=== PATIENT | female | born 1940 | race Caucasian/White ===

== ENCOUNTER 2017-02-17 17:41 | Observation (INO) | payer MEDICARE ==
[~2017-02-17] VITALS: Ht 165.1 cm; Wt 65.7 kg
--- NOTE | ~2017-02-17 | HEMODYNAMI ---
PATIENT:WILMER GIBSON MEDICAL RECORD: [id number] : 38 LOCATION[facility] [id number] ADMISSION DATE: 02/17/17 Generatedon:02/18/201714:54 Patient name: WILMER GIBSON Patient #: [id number] SSN: : 1940 Date of study: 02/18/2017 Page: Of Hemodynamic Procedure Report Patient Data Patient Demographics Procedure consent was obtained First Name: WILMER Gender: Female Last Name: ARTHUR : 1940 Middle Initial: L Age: 76 year(s) Patient #: [id number] Race: Unknown Additional ID: [id number] Contact details Address: [address] [place] [address] State: [place] City: [place] Zip code: [address] Admission Admission Data Admission Date: 02/17/2017 Admission Time: 22:33 Room #: D.2121 Lab Results Lab Result Date: 02/18/2017 Lab Result Time: 0:00 Biochemistry Name Units Result Min Max BUN mg/dl 16 --(---*)-- 7 18 Creatinine mg/dl 0.7 --(*---)-- 0.6 1.3 CBC Name Units Result Min Max Hematocrit % 48.2 --(--*-)-- 42 54 Hemoglobin g/dl 16.6 --(---*)-- 13.5 17.5 Procedure Procedure Types Cath Procedure Diagnostic Procedure [facility] w/Coronaries PCI Procedure Coronary Stent Initial Miscellaneous Procedures Moderate Sedation up to 30 minutes Procedure Description Procedure Date Procedure Date: 02/18/2017 Procedure Start Time: 14:18 Procedure End Time: 14:53 Procedure Staff Name Function Gil Wiggins MD Performing Physician Kelsy Weeks RT Scrub Eddie Sims RN Nurse Francisco Pérez RT Monitor Procedure Data Cath Procedure Fluoroscopy Diagnostic fluoroscopy Total fluoroscopy Time: 6 time: 6 min min Diagnostic fluoroscopy Total fluoroscopy dose: 661 dose: 661 mGy mGy Contrast Material Contrast Material Type Amount (ml) Isovue 300 108 Entry Location Entry Primary Successful Side Size Upsize Upsize Entry Closure Succes sful Closure Location (Fr) 1 (Fr) 2 (Fr) Remarks Device Remarks Femoral Right 5 Fr 6 Fr 6 Fr Exoseal artery Short Long Estimated blood loss: 10 ml Diagnostic catheters Device Type Used For End Catheter Placement Cordis 5Fr Pigtail Procedure Catheter (MP) Cordis 5Fr JL 4.0 Procedure Catheter (MP) Diagnostic Infinity 5Fr Procedure JL 6 catheter Cordis 5Fr 3DRC Catheter Procedure (MP) Procedure Complications No complications Procedure Medications Medication Administration Route Dosage 0.9% NaCl I.V. 100 ml/hr Oxygen NC 2 l/min Heparin Flush Bag added to field 2 bags (1000units/500ml NS) Lidocaine 2% added to field 20 Radial Cocktail added to field 1 syringe (Verapomil 2mg/Nitro 400mcg/Heparin 1500units) Versed I.V. 0.5 mg Fentanyl I.V. 25 mcg Fentanyl I.V. 25 mcg Versed I.V. 0.5 mg Fentanyl I.V. 25 mcg Heparin Bolus I.V. 4000 units Integrilin (Bolus I.V. 10.2 ml 2mg/ml) Integrilin (Bolus wasted 9.8 ml 2mg/ml) Fentanyl I.V. 25 mcg Plavix P.O. 600 mg Hemodynamics Rest HGB: 16.6 (g/dl) Heart Rate: 95 (bpm) Pressure Samples Time Site Value (mmHg) Purpose Heart Use Rate(bpm) 14:26 LV 125/13,15 Snapshot 93 14:26 AO 123/80(98) Pullback 93 14:26 LV 120/15,6 Pullback 93 Gradients Valve Time Site 1 Site 2 Mean SEP/DFP Peak To Heart Use (mmHg) (sec/min) Peak Rate (mmHg) (bpm) Aortic 14:26 LV AO 0 18 0 93 120/15,6 123/80(98) Calculations Valve P-P Mean Valve Index Valve Source Name Gradient Area Flow (cm2) Aortic 0 0 0 0 Snapshots Pre Cath Intra NCS Post Cath Vital Signs Time Heart Resp SPO2 etCO2 NIBP (mmHg) Rhythm Pain Sedation Rate (ipm) (%) (mmHg) Status Level (bpm) 13:48:25 87 19 94 27.6 129/79(109) NSR 0 (11) 10(A) , No pain 13:53:01 92 20 98 38.8 119/80(103) NSR 0 (11) 10(A) , No pain 13:57:35 91 16 92 0 109/86(101) NSR 0 (11) 10(A) , No pain 14:02:08 100 16 92 0 112/75(106) NSR 0 (11) 10(A) , No pain 14:06:42 88 16 94 41 118/81(95) NSR 0 (11) 10(A) , No pain 14:11:17 94 14 94 40.3 116/74(85) NSR 0 (11) 10(A) , No pain 14:15:53 94 21 94 0 102/77(92) NSR 0 (11) 9(A) , No pain 14:20:24 90 14 94 0 112/83(100) NSR 0 (11) 9(A) , No pain 14:24:58 91 17 94 17.1 125/80(94) NSR 0 (11) 9(A) , No pain 14:29:34 96 17 94 0 121/84(111) NSR 0 (11) 9(A) , No pain 14:34:11 92 17 96 14.1 123/82(100) NSR 0 (11) 9(A) , No pain 14:38:47 97 18 93 41.7 130/83(111) NSR 0 (11) 9(A) , No pain 14:43:26 97 16 92 0 118/82(98) NSR 0 (11) 9(A) , No pain 14:48:02 91 17 93 17.1 116/82(100) NSR 0 (11) 9(A) , No pain 14:52:35 94 17 40.3 122/94(109) NSR 0 (11) 9(A) , No pain Medications Time Medication Route Dose Verified Delivered Reason Note s Effectiveness by by 13:50:01 0.9% NaCl I.V. 100 Eddie Eddie Per physician ml/hr Levi Sims RN RN 13:50:13 Oxygen NC 2 l/min Eddie Eddie Per physician Levi Sims RN, RN 13:50:29 Heparin Flush added 2 bags Eddie Eddie used for Bag to Levi Sims procedure (1000units/500ml RN RN NS) 13:50:49 Lidocaine 2% added 20ml Eddie Eddie for local to vial Lorigan Lorigan anesthetic field RN RN 13:51:04 Radial Cocktail added 1 Eddie Eddie used for (Verapomil to syringe Lorigan Lorigan procedure 2mg/Nitro field RN RN 400mcg/Heparin 1500units) 14:04:32 Versed I.V. 0.5 mg Eddie Eddie for sedation Levi Sims RN RN 14:04:42 Fentanyl I.V. 25 mcg Eddie Eddie for sedation Levi Sims RN RN 14:09:18 Fentanyl I.V. 25 mcg Eddie Eddie for sedation Levi Sims RN RN 14:27:19 Versed I.V. 0.5 mg Eddie Eddie for sedation Levi Sims RN RN 14:36:39 Fentanyl I.V. 25 mcg Eddie Eddie for sedation Levi Sims RN RN 14:41:23 Heparin Bolus I.V. 4000 Eddie Eddie for units Lorigan Lorinocencio anticoagulation RN RN 14:41:43 Integrilin I.V. 10.2 ml Eddie Eddie for (Bolus 2mg/ml) Lorinocencio Sims antiplatelet RN RN therapy 14:42:02 Integrilin wasted 9.8 ml Eddie Eddie to sharp's (Bolus 2mg/ml) Levi Sims RN RN 14:46:37 Fentanyl I.V. 25 mcg Eddie Eddie for sedation Levi Sims RN RN 14:48:40 Plavix P.O. 600 mg Eddie Eddie for Levi Sims antiplatelet RN RN therapy Procedure Log Time Note 13:18:17 Diagnostic Cath status Elective 13:18:19 Francisco Pérez RT(R) sent for patient. Start room use. 13:18:27 Signed procedure consent form obtained from patient. 13:18:29 Time tracking: Regular hours 13:18:33 Plan of Care:Hemodynamics will remain stable., Cardiac rhythm will remain stable., Comfort level will be maintained., Respiratory function will remain adequate., Patient/ family verbilizes understanding of procedure., Procedure tolerated without complication., Recovers from procedure without complications.. :20:41 Lab Result : BUN 16 mg/dl :20:41 Lab Result : Creatinine 0.7 mg/dl 13:20:41 Lab Result : Hemoglobin 16.6 g/dl 13:20:41 Lab Result : Hematocrit 48.2 % 13:24:21 Lab results completed and on chart. 13:33:52 Patient received from Med II to CCL 1 Alert and oriented. Tansferred to table in Supine position. 13:33:54 Warm blankets applied, and crao hugger turned on for patient comfort. 13:33:54 Correct patient and procedure confirmed by team. 13:33:56 ECG and BP/O2 sat monitors applied to patient. 13:47:36 Vital chart was started 13:50:01 0.9% NaCl 100 ml/hr I.V. was administered by Eddie Sims RN; Per physician; 13:50:13 Oxygen 2 l/min NC was administered by Eddie Sims RN; Per physician; 13:50:29 Heparin Flush Bag (1000units/500ml NS) 2 bags added to field was administered by Eddie Sims RN; used for procedure; 13:50:44 Baseline sample Acquired. 13:50:49 Lidocaine 2% 20ml vial added to field was administered by Eddie Sims RN; for local anesthetic; 13:51:04 Radial Cocktail (Verapomil 2mg/Nitro 400mcg/Heparin 1500units) 1 syringe added to field was administered by Eddie Sims RN; used for procedure; 13:51:58 Rhythm: sinus rhythm 13:51:59 Full Disclosure recording started 13:52:17 H&P Date Dictated: 02/18/2017 Within 30 days and on chart.. 13:52:18 Pre-procedure instructions explained to patient. 13:52:18 Pre-op teaching completed and patient verbalized understanding. 13:52:39 Family unavailable. 13:52:40 Patient NPO since Midnight. 13:52:42 Is the patient allergic to Iodine/contrast media? No. 13:52:44 Is patient on blood thinner?No 13:52:49 Patient diabetic? No. 13:52:51 Patient not . Patient is over age 55. 13:52:55 Previous problem with sedation/anesthesia? No ? 13:52:56 Snore? No 13:52:57 Sleep apnea? No 13:52:58 Deviated septum? No 13:52:59 Opens mouth fully? Yes 13:53:00 Sticks out tongue? Yes 13:53:01 Airway obstruction? No ? 13:53:05 Dentures? Yes OUT 13:58:08 Pre procedure: right dorsailis pedis pulse 1+ Palpable, but thready & weak; easily obliterated 13:58:11 Modified Zhao's test Ulnar < 7 seconds 13:58:16 Patient pain scale 0/10 ?. 13:58:23 IV patent on arrival in left forearm with 0.9% NaCl at [facility]. 13:58:27 Right Radial & Right Groin area was prepped with chlora-prep and draped in sterile fashion 13:58:29 Alarms reviewed by R. N. 13:58:29 Sharps counted by scrub and verified by R.N. 13:58:30 Physician paged 13:59:07 Use device set Radial Dx 13:59:08 Tegaderm 4 x 4 opened to sterile field. 13:59:09 Acist Hand Control opened to sterile field. 13:59:10 Acist Manifold opened to sterile field. 13:59:11 Acist Syringe opened to sterile field. 13:59:11 Medline Cath Pack opened to sterile field. 13:59:11 Bag Decanter opened to sterile field. 13:59:12 St Henrry 260cm J .035 wire opened to sterile field. 13:59:12 MBrace Wrist Support opened to sterile field. 14:03:56 --------ALL STOP TIME OUT------ 14:03:57 Final Timeout: patient, procedure, and site verified with staff and physician. All members of the team are in agreement. 14:03:59 Right Radial & Right Groin site verified by team. 14:04:02 Physical assessment completed. ASA score P 2 - A patient with mild systemic disease as per Gil Wiggins MD. 14:04:05 Sedation plan: IV Moderate Sedation Versed, Fentanyl 14:04:32 Versed 0.5 mg I.V. was administered by Eddie Sims RN; for sedation; 14:04:42 Fentanyl 25 mcg I.V. was administered by Eddie Sims RN; for sedation; 14:09:18 Fentanyl 25 mcg I.V. was administered by Eddie Sims RN; for sedation; 14:18:10 Procedure started. 14:18:25 Local anesthetic to right radial artery with Lidocaine 2% by Gil Wiggins MD.INITIAL ACCESS ONLY 14:22:08 Unable to advance wire into radial artery. Moving to femoral approach. 14:22:16 Local anesthetic to right femoral artery with Lidocaine 2% by Gil Wiggins MD.ADDITIONAL ACCESS 14:22:39 Use device set Multipack Set 14:22:41 Terumo 5Fr [place] Sheath opened to sterile field. 14:22:41 Diagnostic Infinity 5Fr Multipack catheter opened to sterile field. 14:23:27 Cook 18G 7cm Percutaneous Entry needle opened to sterile field. 14:23:49 A 5 Fr sheath was inserted into the Right Femoral artery 14:24:42 A Cordis 5Fr Pigtail Catheter (MP) was advanced over the wire and used for Procedure. 14:26:46 LV angiography performed. 14:26:48 LV gram done using REGAN 14:27:00 EF : 50 % 14:27:01 LV hemodynamics recorded. 14:27:04 Injector settings: Ml/sec: 10, Volume: 20, 14:27:05 Catheter removed. 14:27:11 A Cordis 5Fr JL 4.0 Catheter (MP) was advanced over the wire and used for Procedure. 14:27:19 Versed 0.5 mg I.V. was administered by Eddie Sims RN; for sedation; 14:27:55 Catheter removed. unable to cannulate vessel. 14:28:17 A Diagnostic Infinity 5Fr JL 6 catheter was advanced over the wire and used for Procedure. 14:29:26 LCA angiography performed. 14:30:01 Catheter removed. 14:30:24 Terumo 6Fr [place] Sheath opened to sterile field. 14:30:25 Merit BasixCompak Inflation Kit opened to sterile field. 14:30:33 A Cordis 5Fr 3DRC Catheter (MP) was advanced over the wire and used for Procedure. 14:31:47 Catheter removed. unable to cannulate vessel. 14:32:46 Medtronic Launcher 6Fr ALR1-2 guide catheter opened to sterile field. 14:32:56 Sheath upsized to a 6 Fr Short. 14:33:04 6 Fr ALR 1-2 guide catheter was inserted over the wire 14:34:37 Guide catheter removed. 14:34:45 Arrow 6Fr 45cm Sheath opened to sterile field. 14:35:06 Sheath upsized to a 6 Fr Long. 14:35:56 Medtronic Launcher 6Fr AR 2.0 guide catheter opened to sterile field. 14:36:39 Fentanyl 25 mcg I.V. was administered by Eddie Sims RN; for sedation; 14:37:58 RCA angiography performed. 14:38:01 Catheter removed. 14:38:11 Medtronic Launcher 6Fr EBU 4.5 guide catheter opened to sterile field. 14:41:17 6 Fr EBU 4.5 guide catheter was inserted over the wire 14:41:23 Heparin Bolus 4000 units I.V. was administered by Eddie Sims RN; for anticoagulation; 14:41:26 PT Graphix wire advanced. 14:41:32 Wire advanced across lesion. 14:41:43 Integrilin (Bolus 2mg/ml) 10.2 ml I.V. was administered by Eddie Sims RN; for antiplatelet therapy; 14:42:02 Integrilin (Bolus 2mg/ml) 9.8 ml wasted was administered by Eddie Sims RN; to sharp's; 14:42:07 Inflation Number: 1 A Jabier RX 4.0 x 15 stent was prepped and advanced across the LMCA. The stent was deployed at 17 LACY for 0:10 (min:sec). 14:42:52 Stent catheter was removed intact over wire. 14:42:52 Wire removed. 14:42:53 Guide catheter removed. 14:43:28 Right Femoral artery Long sheath exchanged to short sheath. 14:43:35 Cordis 6Fr Exoseal opened to sterile field. 14:43:54 Sheath removed intact; hemostasis achieved with Exoseal to the Right Femoral artery. 14:43:57 Procedure ended.(Physican Out) 14:45:15 Fluoroscopy time 06.00 minutes. 14:45:20 Fluoroscopy dose: 661 mGy 14:45:20 Flurop Dose total: 661 14:45:25 Contrast amount:Isovue 300 108ml. 14:45:27 Sharps counted by scrub and verified by R.N. 14:45:28 Insertion/operative site no bleeding no hematoma. 14:45:31 Post-op/insertion site Right Femoral artery dressed using a 4 x 4 and Tegaderm. 14:46:06 Post Procedure Pulses reassessed and unchanged 14:46:10 Post-procedure physical assessment completed. ASA score P 2 - A patient with mild systemic disease as per Gil Wiggins MD. 14:46:13 Post procedure rhythm: unchanged. 14:46:17 Estimated blood loss: 10 ml 14:46:19 Post procedure instruction explained to patient.Patient verbalizes understanding. 14:46:20 Patient needs reinforcement of post procedure teaching. 14:46:35 Procedure type changed to Cath procedure, Diagnostic procedure, LHC, LHC w/Coronaries, PCI procedure, Coronary Stent Initial, Miscellaneous Procedures, Moderate Sedation up to 30 minutes 14:46:37 Fentanyl 25 mcg I.V. was administered by Eddie Sims RN; for sedation; 14:46:40 Procedure Complication : No complications 14:46:43 Procedure and supply charges have been captured, reviewed, submitted and are correct. 14:48:40 Plavix 600 mg P.O. was administered by Eddie Sims RN; for antiplatelet therapy; 14:53:36 Vital chart was stopped 14:53:37 See physician's report for complete and final results. 14:53:40 Report given to PCU. 14:53:43 Patient transfered to PCU with Bed. 14:53:46 Procedure ended. 14:53:46 Full Disclosure recording stopped 14:53:50 End room use (Document Last) Intervention Summary Intervention Notes Time ActionType Lesion and Equipment Action# Pressure Duration Attributes Used 14:42:07 Place stent LMCA [place] RX 1 17 00:10 4.0 x 15 stent Device Usage Item Name Manufacture Quantity Catalog Hospital Part Current Mini mal Lot# / Number Charge Number Stock Stock Serial# Code Tegaderm 4 x 3M 1 1626W [id number] 086381 090711 5 4 Acist Hand Acist 1 05360 250386 535695 346766 5 Control Medical Systems Inc Acist Acist 1 98343 871584 684669 328160 5 Manifold Medical Systems Inc Acist Acist 1 54664 006422 250922 193949 20 Syringe Medical Systems Inc Medline Cath Cardinal 1 [id number] 696451 75409 062376 5 Pack Health Bag Decanter Microtek 1 2002S 899330 68210 390778 [address] Henrry 1 760117 052210 375403 535864 30 260cm J .035 wire MBrace Wrist Advanced 1 140-0250-00 203344 58205 242568 5 Support Vascular Dynamics Terumo 5Fr Terumo 1 [id number] 221291 563627 757473 40 [place] Sheath Diagnostic Cardinal 1 MS8852 413607 32598 820868 30 Infinity 5Fr Health Multipack catheter Cook 18G 7cm [facility] 1 [id number] 688521 36920 252432 5 Percutaneous Entry needle Cordis 5Fr Cardinal 1 039929 5 Pigtail Health Catheter (MP) Cordis 5Fr Cardinal 1 664108 5 JL 4.0 Health Catheter (MP) Diagnostic Cardinal 1 [id number] 172787 710613 698249 5 Infinity 5Fr Health JL 6 catheter Terumo 6Fr Terumo 1 FWK963 323609 222647 882150 40 [place] Sheath [facility] 1 XE1819 445278 667874 608271 15 Kimera SystemsFillmore Community Medical CenterFifth Generation Computer Medical Inflation Kit Cordis 5Fr Cardinal 1 477106 5 3DRC Health Catheter (MP) Medtronic Medtronic 1 [id number] 126700 10011 786153 1 Launcher 6Fr ALR1-2 guide catheter Arrow 6Fr Teleflex 1 CL-25642 827671 992867 776186 5 45cm Sheath Medtronic Medtronic 1 [id number] 504743 92412 650303 1 Launcher 6Fr AR 2.0 guide catheter Medtronic Medtronic 1 [id number] 100568 92740 650406 0 Launcher 6Fr EBU 4.5 guide catheter Jabier RX 4.0 Medtronic 1 [id number] 68447 7226957 644595 5 [id number] x 15 stent Cordis 6Fr Cardinal 1 EX600 880253 328497 448479 10 [facility] Signature Audit [place] Stage Time Signature Unsigned Intra-Procedure 02/18/2017 Francisco Pérez 2:54:07 PM RT(R) Signatures Monitor : Francisco Pérez RT Signature : Date : Time : [facility] [address], [facility]901
[~2017-02-17 17:41] MED LIST: LISINOPRIL10 MG PO; PERCOCET 5-3251 TAB PO; ULTRAM50 MG PO
[2017-02-17 20:05] LABS: BASOPHILS 0.3 % (0-2); EOSINOPHILS 0.3 % (0-7); HEMATOCRIT 48.2 % (36.0-48.0); HEMOGLOBIN 16.6 g/dL (12-16); IMMATURE GRANULOCYTES 0.3 % (0-5); LYMPHOCYTES 23.9 % (15-50); MCH 29.3 pg (26.0-34.0); MCHC 34.4 g/dL (31.0-37.0); MONOCYTES 6.6 % (2-11); NEUTROPHILS 68.6 % (40-80); PLATELET COUNT 249 10x3/uL (130-400); RBC 5.67 10x6/uL (4.00-5.40); RDW 13.6 % (11.5-14.5); WBC 11.6 10x3/uL (4.8-10.8)
[2017-02-17 20:27] LABS: ALBUMIN 3.8 g/dL (3.4-5.0); ALKALINE PHOSPHATASE 95 U/L (46-116); ALT (SGPT) 20 U/L (10-68); BILIRUBIN - TOTAL 0.66 mg/dL (0.2-1.3); CALC OSMOLALITY 262 mosm/kg (275-300); CALCIUM 8.7 mg/dL (8.5-10.1); CHLORIDE - SERUM 93 mmol/L (98-107); CREATININE - SERUM 0.7 mg/dL (0.6-1.3); GLUCOSE 110 mg/dL (74-106); POTASSIUM - SERUM 3.6 mmol/L (3.5-5.1); PROTEIN - SERUM 7.5 g/dL (6.4-8.2); SODIUM 130 mmol/L (136-145); UREA NITROGEN 16 mg/dL (7-18); eGFR NON AFRICAN AMERICAN 86 mL/min (90-120)
[2017-02-17 20:33] LABS: PRO BNP 134 pg/mL (0-450)
[2017-02-17 20:47] LABS: TROPONIN-I < 0.017 ng/mL (0.000-0.060)
[2017-02-17 22:03] LABS: UDS - AMPHET NEGATIVE QUAL (NEGATIVE); UDS - BARB NEGATIVE QUAL (NEGATIVE); UDS - BENZO NEGATIVE QUAL (NEGATIVE); UDS - COCAINE NEGATIVE QUAL (NEGATIVE); UDS - OPIATE NEGATIVE QUAL (NEGATIVE); UDS - PCP NEGATIVE QUAL (NEGATIVE); UDS - THC NEGATIVE QUAL (NEGATIVE)
[2017-02-17 22:51] LABS: APPEARANCE CLEAR (CLEAR); BILIRUBIN NEGATIVE (NEGATIVE); COLOR YELLOW (YELLOW); GLUCOSE NEGATIVE (NEGATIVE); KETONE NEGATIVE (NEGATIVE); NITRITE NEGATIVE (NEGATIVE); PROTEIN NEGATIVE (NEGATIVE); UROBILINOGEN NORMAL (NORMAL)
--- NOTE | 2017-02-17 23:16 | NUR ---
RECIEVED TO ROOM 2120 FROM ER, PT A&O. RESPERATIONS EVEN ON RA. IV TO LEFT AC WITH NS INFUSING AT 50 CC/HR. PLACED ON TELEMETRY, 89 SR PER MT. PT DENIES PAIN OR NEEDS, BED LOW, CL IN REACH, BED ALARM IN USE.
[2017-02-18] VITALS: BP 117/73
[2017-02-18] MEDS ORDERED: BACLOFEN20 M1 PO (00:34)
[2017-02-18] MEDS ORDERED: RESTORIL15 MG PO (00:35)
[2017-02-18] MEDS ORDERED: NORVASC5 MG PO (00:35)
[2017-02-18] MEDS ORDERED: HYDROCODONE-APA1 TAB PO (00:36)
--- NOTE | 2017-02-18 02:23 | NUR ---
CALL LIGHT IN REACH. WILL CONTINUE WITH PLAN OF CARE. 89 SA ON TELEMETRY
[2017-02-18 06:06] VITALS: Ht 165.1 cm; Wt 65.7 kg
--- NOTE | 2017-02-18 07:45 | NUR ---
ASSESSMENT DONE. DENIES NEEDS.
--- NOTE | 2017-02-18 09:25 | NUR ---
UP SOB WITH CALL LIGHT IN REACH. NO NEEDS VOICED. WILL MONITOR.
[2017-02-18 09:27] LABS: BASOPHILS 0.1 % (0-2); EOSINOPHILS 0 % (0-7); HEMATOCRIT 49.8 % (36.0-48.0); IMMATURE GRANULOCYTES 0.1 % (0-5); LYMPHOCYTES 10.9 % (15-50); MCH 29.4 pg (26.0-34.0); MCHC 34.1 g/dL (31.0-37.0); MCV 86.2 fL (80.0-100.0); MEAN PLATELET VOLUME 10.6 fL (7.4-10.4); MONOCYTES 0.3 % (2-11); NEUTROPHILS 88.6 % (40-80); PLATELET COUNT 279 10x3/uL (130-400); RBC 5.78 10x6/uL (4.00-5.40); RDW 13.8 % (11.5-14.5)
[2017-02-18 09:36] LABS: CALC OSMOLALITY 271 mosm/kg (275-300); CALCIUM 9.7 mg/dL (8.5-10.1); CARBON DIOXIDE 23.8 mmol/L (21.0-32.0); CHLORIDE - SERUM 99 mmol/L (98-107); CREATININE - SERUM 0.6 mg/dL (0.6-1.3); GLUCOSE 155 mg/dL (74-106); POTASSIUM - SERUM 3.8 mmol/L (3.5-5.1); SODIUM 135 mmol/L (136-145); eGFR NON AFRICAN AMERICAN > 90 mL/min (90-120)
[2017-02-18 09:48] LABS: WBC 7.9 10x3/uL (4.8-10.8)
[2017-02-18 09:57] LABS: UREA NITROGEN 11 mg/dL (7-18)
[2017-02-18 10:22] VITALS: BP 128/92
--- NOTE | 2017-02-18 11:32 | NUR ---
Patient Name: WILMER GIBSON Encounter No: [id number] : 1940 Primary Insurance: MEDICARE A & B Anticipated DC Date: Planned Disposition: Home DCP follow-up note: BEDSIDE NURSE REPORTED TO CM THAT PT REQUESTED COURT EXCUSE BE FAXED TO [facility] AT [phone]. CM FAXED LETTER INDICATING [facility]. PT NOTIFIED, DENIES FURHTER DISCHARGE NEEDS AT THIS TIME. BEDSIDE NURSE NOTIFIED. Torin Buenrostro, CASE MANAGEMENT
[2017-02-18 12:08] VITALS: BP 117/78
--- NOTE | 2017-02-18 13:52 | NUR ---
TO ORCHID GROWER PER BED
[2017-02-18] MEDS ORDERED: PLAVIX75 MG PO (15:35)
--- NOTE | 2017-02-18 17:47 | NUR ---
WITHOUT CHANGES OR DISTRESS NOTED AT THIS TIME. DENIES NEEDS
--- NOTE | 2017-02-18 19:57 | NUR ---
NORCO 1 TAB GIVEN FOR C/O PAIN TO LOWER BACK, RATES PAIN AT AN 8 ON PAIN SCALE.
[2017-02-18 21:18] VITALS: BP 120/88
[2017-02-19 01:16] VITALS: BP 133/88
--- NOTE | 2017-02-19 03:27 | NUR ---
RESTING WITH EYES CLOSED, RESPERATIONS EVEN, NO S/S DISTRESS NOTED.
[2017-02-19 04:49] VITALS: BP 130/83
--- NOTE | 2017-02-19 05:39 | NUR ---
LYING IN BED WITH CALL LIGHT IN REACH. WILL CONTINUE WITH PLAN OF CARE.
[2017-02-19 08:00] VITALS: BP 137/90
[2017-02-19] MEDS ORDERED: NICODERM C1 PATCH .1 TRANSDERM (11:37)
[2017-02-19] MEDS ORDERED: PROAIR HFA8.5 GM INH ×2 (13:26→15:30)
--- NOTE | 2017-02-19 13:43 | NUR ---
RX CALLED TO [facility]. IV AND TELEMETRY DCD. DC PLANS GIVEN. UNDERSTANDING VOICED. ESCORTED TO CAR BY W/C.
--- NOTE | 2017-03-05 14:14 | OP ---
PATIENT NAME: WILMER GIBSON MEDICAL RECORD: [id number] :[birth year] LOCATION:D.M2 D.2121 ADMISSION DATE:02/17/17 SURGEON: KELI LYLE MD DATE OF OPERATION: 02/18/2017 PROCEDURES: 1. PTCA stent left main. 2. Left heart catheterization. 3. Selective coronary angiography. 4. Left ventriculogram. INDICATION: Unstable angina. PROCEDURE IN DETAIL: After informed consent was obtained and after detailed explanation of risks, benefits as well as alternative therapies, the patient elected to proceed with angiogram and angioplasty. The right femoral area was prepped and draped in normal sterile fashion. The right femoral artery was cannulated via modified Seldinger technique with placement of 6-Slovenian sheath. All catheters exchanged through this sheath. FINDINGS: Left ventriculogram was performed in standard 30-degree REGAN view reveals preserved cardiac wall motion, ejection fraction 50%. SELECTIVE CORONARY ANGIOGRAPHY: 1. Left main has a 90% stenosis distally. 2. Left anterior descending has moderate irregularities, but no flow-limiting stenosis. 3. The left circumflex has moderate irregularities, but no flow-limiting stenosis. 4. Right coronary has moderate irregularities, but no flow-limiting stenosis. PTCA STENT OF LEFT MAIN: Stent used is 4.0 x 15 mm Jabier. Result was 0% residual stenosis. OVERALL IMPRESSION: Successful percutaneous transluminal coronary angioplasty stent of the left main going from 90% initial stenosis to 0% residual stenosis. TRANSINT:[id number] Voice Confirmation ID: [id number] DOCUMENT ID: [id number] KELI LYLE MD at 1414 CC: JAKE MANE DO [id number] DICTATION DATE: 02/18/17 1450 FUSE SPOOLER: 02/18/17 1506 DIS IN 02/19/17 [id number] [place] [address]
== END 2017-02-19 13:44 | disposition home or self-care (01) ==
LOC: D.ER 17:41 → D.M2 22:33 → OBSVTIME 22:33 → D.M2 22:33
PROVIDERS: Emergency Medicine; Internal Medicine Interventional Cardiology; ADMIT Family Medicine
DX: I25.110 Atherosclerotic heart disease of native coronary artery with unstable angina pectoris (principal); F17.203 Nicotine dependence unspecified, with withdrawal; I10 Essential (primary) hypertension; J44.9 Chronic obstructive pulmonary disease, unspecified
CPT/HCPCS: 93458; C9600

== ENCOUNTER 2017-08-18 23:08 | Inpatient (IN) | payer MEDICARE ==
[~2017-08-18] VITALS: Ht 165.1 cm; Wt 80.7 kg
--- NOTE | ~2017-08-18 | OP ---
PATIENT NAME: WILMER GIBSON MEDICAL RECORD: [id number] :[birth year] LOCATION:D.MS [place] ADMISSION DATE:08/19/17 SURGEON: TAYLOR DRAPER MD DATE OF OPERATION: 08/19/2017 PREOPERATIVE DIAGNOSIS: Highly comminuted distal both bone forearm fracture of the right forearm distal radius and ulna. POSTOPERATIVE DIAGNOSIS: Highly comminuted distal both bone forearm fracture of the right forearm distal radius and ulna. PROCEDURE: Application of bi-rail external fixator. SURGEON: Taylor Draper MD. ANESTHESIA: General. INTRAOPERATIVE COMPLICATIONS: None. SUMMARY OF PATHOLOGIC FINDINGS: Given the high amount of comminution and displacement, I felt like the most appropriate would be to treat this traumatically with the external fixator with revision surgery later if needed. IMPLANTS USED: Urszula II Compact system. OPERATIVE SUMMARY IN DETAIL: After obtaining the appropriate preoperative orthopedic surgery consent as well as anesthetic consultation, evaluation and clearance, the patient was brought to the operating room and placed on the operating table in supine position. After general laryngeal mask airway was administered, tourniquet was placed about the proximal aspect of the right upper extremity. Right upper extremity was then prepped and draped in routine sterile fashion. The arm was elevated and exsanguinated, tourniquet was inflated to 250 mmHg. Reduction maneuver was performed under fluoroscopy. Small incision was made along the radial shaft. Two apex pins were placed under fluoroscopic guidance followed by a small incision made along the shaft of the second metacarpal. Two apex pins again were placed under fluoroscopic guidance. External fixator was assembled. Reduction was held in place on AP and lateral planes by fluoroscopy and the external fixator was tightened. Final radiographs were submitted for radiologist review. Wounds were irrigated and closed with 4-0 Prolene. Sterile dressings were applied. The patient was awakened and taken to the recovery room in stable condition. All final needle and sponge counts were correct. TRANSINT:[id number] Voice Confirmation ID: [id number] DOCUMENT ID: [id number] TAYLOR DRAPER MD at 1225 CC: [id number] DICTATION DATE: 08/19/17 1023 CASE INVESTIGATOR: 08/19/17 1202 ADM IN [address] [address]
[~2017-08-18 23:08] MED LIST changes: +BACLOFEN20 M1 PO; +HYDROCODONE-APA1 TAB PO; +NICODERM C1 PATCH .1 TRANSDERM; +NORVASC5 MG PO; +PLAVIX75 MG PO; +PROAIR HFA8.5 GM INH; +RESTORIL15 MG PO
[2017-08-18 23:55] LABS: HEMATOCRIT 46.1 % (36.0-48.0); HEMOGLOBIN 15.7 g/dL (12-16); MCH 28.5 pg (26.0-34.0); MCHC 34.1 g/dL (31.0-37.0); MCV 83.8 fL (80.0-100.0); NEUTROPHILS 59.2 % (40-80); PLATELET COUNT 240 10x3/uL (130-400); RDW 13.9 % (11.5-14.5); WBC 9.9 10x3/uL (4.8-10.8)
[2017-08-19 00:03] LABS: INR 0.96 (0.85-1.17); PROTIME 12.4 SECONDS (11.6-15.0)
[2017-08-19 00:12] LABS: ALBUMIN 3.5 g/dL (3.4-5.0); BILIRUBIN - TOTAL 0.5 mg/dL (0.2-1.3); CALCIUM 9.2 mg/dL (8.5-10.1); CARBON DIOXIDE 24.7 mmol/L (21.0-32.0); CREATININE - SERUM 0.8 mg/dL (0.6-1.3); PROTEIN - SERUM 6.9 g/dL (6.4-8.2)
[2017-08-19 00:35] LABS: ANION GAP 10.9 mmol/L (8-16); POTASSIUM - SERUM 3.6 mmol/L (3.5-5.1)
[2017-08-19 07:33] VITALS: Ht 165.1 cm; Wt 80.7 kg
[2017-08-19 09:06] VITALS: BP 126/83
[2017-08-19 11:40] VITALS: BP 103/65
[2017-08-19 15:38] VITALS: BP 120/77
[2017-08-19 20:44] VITALS: BP 125/74
[2017-08-20 01:17] VITALS: BP 138/78
[2017-08-20 05:00] VITALS: BP 154/74
[2017-08-20] MEDS ORDERED: ULTRAM50 MG PO (08:01)
[2017-08-20 09:07] VITALS: BP 149/96
== END 2017-08-20 18:28 | disposition home health service (06) | DRG 511 ==
LOC: OBSVTIME → D.ER 23:08 → D.MS 08-19 00:43 → D.EDHOLD 08-19 00:43 → D.ER 08-19 00:43 → OBSVTIME 08-19 00:43 → D.MS 08-19 00:51 → D.EDHOLD 08-19 00:51 → D.MS 08-19 14:56 → EDSTATUS 08-19 16:00 → D.MS 08-20 18:28
PROVIDERS: Nurse Practitioner Family; Orthopaedic Surgery
PROC: 0PSK35Z Reposition Right Ulna with External Fixation Device, Percutaneous Approach (ICD-10-PCS; 2017-08-19)
PROC: 0PSH35Z Reposition Right Radius with External Fixation Device, Percutaneous Approach (ICD-10-PCS; principal; 2017-08-19 16:00)
DX: S52.501A Unspecified fracture of the lower end of right radius, initial encounter for closed fracture (principal); F17.203 Nicotine dependence unspecified, with withdrawal; S52.601A Unspecified fracture of lower end of right ulna, initial encounter for closed fracture; W10.9XXA Fall (on) (from) unspecified stairs and steps, initial encounter; J44.9 Chronic obstructive pulmonary disease, unspecified; I25.10 Atherosclerotic heart disease of native coronary artery without angina pectoris

== ENCOUNTER 2017-09-10 05:46 | Day surgery (SDC) | payer MEDICARE ==
[2017-09-09 09:29] LABS: HEMATOCRIT 45.3 % (36.0-48.0); HEMOGLOBIN 15.3 g/dL (12-16); MCH 28.9 pg (26.0-34.0); MCHC 33.8 g/dL (31.0-37.0); MCV 85.5 fL (80.0-100.0); RBC 5.3 10x6/uL (4.00-5.40); RDW 13.7 % (11.5-14.5); WBC 7.7 10x3/uL (4.8-10.8)
[~2017-09-10] VITALS: Ht 162.6 cm; Wt 83.5 kg
--- NOTE | ~2017-09-10 | OP ---
PATIENT NAME: WILMER GIBSON MEDICAL RECORD: [id number] :38 LOCATION:D.OPS ADMISSION DATE: SURGEON: BONNY BEASLEY, TAYLOR CYR DATE OF OPERATION: 09/10/2017 PREOPERATIVE DIAGNOSES: 1. Comminuted distal radius and ulna fracture with prior external fixation. 2. Acute carpal tunnel syndrome. POSTOPERATIVE DIAGNOSES: 1. Comminuted distal radius and ulna fracture with prior external fixation. 2. Acute carpal tunnel syndrome. PROCEDURES: 1. Open reduction internal fixation of distal radius fracture. 2. Removal of external fixation device from the right wrist. 3. Carpal tunnel release. SURGEON: Taylor Draper MD AUTOMOTIVE INSTRUCTOR SURGEON: Christiano Seth MD. INTRAOPERATIVE COMPLICATIONS: None. SUMMARY OF PATHOLOGIC FINDINGS: The patient's fracture had gotten very sticky and was very easy to play with the external fixation device in situ. OPERATIVE SUMMARY IN DETAIL: After obtaining the appropriate preoperative orthopedic surgery consent as well as anesthetic consultation, evaluation and clearance, the patient was brought to the operating room and placed on the operating table in supine position. After general laryngeal mask airway was administered, the tourniquet was placed about the patient's left upper extremity. Right upper extremity was then prepped and draped in routine sterile fashion. The arm was elevated and exsanguinated, tourniquet was inflated to 250 mmHg. Fluoroscopy was brought in and under AP and lateral fluoroscopic planes, it was felt that the patient's reduction was nearly anatomic. For this reason, the external fixator device was left in place while the internal fixation was approached. The volar approach of Kyrie was utilized from mid palmar aspect proximally. An incision was made, taken down to the level of the transverse carpal ligament. The transverse carpal ligament was released in its entirety with the median nerve and the flexor carpal radialis were identified as landmarks and dissection was then carried down. The wrist flexors and median nerve were gently retracted ulnarly and the fracture was exposed. After removal of the thin layer of muscle, the VariAx volar plate narrow short was utilized primarily distal fixation was achieved and the plate was then brought down to the more proximal radius to enhance the patient's volar tilt. Serial and sequential fixation was done with a combination of both locking and compression screws, all done under fluoroscopic guidance. Final fixation was achieved. AP, lateral, and oblique radiographs were sent for final radiologist review. At this point the Ex-Fix was removed and [place] pins were taken out. The wound was copiously irrigated and closed with 2-0 Vicryl followed by 4-0 Prolene in running fashion. Sterile dressings were applied. Tourniquet was deflated. The patient was awakened, taken to recovery room in stable condition. All final needle and sponge counts were correct. OPERATIVE REPORT [id number] WILMER GIBSON TRANSINT:[id number] Voice Confirmation ID: [id number] DOCUMENT ID: [id number] 09/20/[address] Draper, 09/20/2017. BONNY BEASLEY, TAYLOR CYR at 1332 CC: [id number] DICTATION DATE: 09/10/17 0943 APPLICATIONS INSTRUCTOR: 09/10/17 1103 [facility] 09/10/17 [facility] [address] [place] [address]
[2017-09-10 07:09] VITALS: Ht 162.6 cm; Wt 83.5 kg
[2017-09-10] MEDS ORDERED: HYDROCODONE-APA1 TAB PO (09:31)
== END 2017-09-10 11:40 | disposition home or self-care (01) ==
LOC: D.OPS 05:46 → D.PAN 07:30 → D.OPS 07:30 → D.PAN 08:15 → D.OPS 11:40
PROVIDERS: Anesthesiology
DX: S52.501A Unspecified fracture of the lower end of right radius, initial encounter for closed fracture (principal); S52.601A Unspecified fracture of lower end of right ulna, initial encounter for closed fracture; X58.XXXA Exposure to other specified factors, initial encounter; G56.01 Carpal tunnel syndrome, right upper limb; Z01.812 Encounter for preprocedural laboratory examination

== ENCOUNTER → 2018-06-15 14:26 | Outpatient (CLI) | payer MEDICARE ==
[2017-09-10 07:09] VITALS: BMI 31.6
[2018-06-15 18:12] LABS: INR 1.2 (0.85-1.17); PROTIME 14.7 SECONDS (11.6-15.0)
== END | disposition home or self-care (01) ==
LOC: D.LABREF 14:26
PROVIDERS: ATTEND Family Medicine
DX: I48.91 Unspecified atrial fibrillation (principal); Z51.81 Encounter for therapeutic drug level monitoring; Z79.01 Long term (current) use of anticoagulants

== ENCOUNTER → 2018-06-29 23:23 | Outpatient (CLI) | payer MEDICARE ==
[2017-09-10 07:09] VITALS: BMI 31.6
[2018-06-30 00:31] LABS: INR 1.34 (0.85-1.17); PROTIME 16.1 SECONDS (11.6-15.0)
== END | disposition home or self-care (01) ==
LOC: D.LABREF 23:23
PROVIDERS: ATTEND Family Medicine
DX: Z79.01 Long term (current) use of anticoagulants (principal); Z86.711 Personal history of pulmonary embolism

== ENCOUNTER → 2018-07-06 18:25 | Outpatient (CLI) | payer MEDICARE ==
[2017-09-10 07:09] VITALS: BMI 31.6
[2018-07-06 19:29] LABS: INR 1.78 (0.85-1.17)
== END | disposition home or self-care (01) ==
LOC: D.LABREF 18:25
PROVIDERS: ATTEND Family Medicine
DX: Z51.81 Encounter for therapeutic drug level monitoring (principal); Z79.01 Long term (current) use of anticoagulants; I48.91 Unspecified atrial fibrillation

== ENCOUNTER → 2018-07-13 16:43 | Outpatient (CLI) | payer MEDICARE ==
[2017-09-10 07:09] VITALS: BMI 31.6
[2018-07-13 17:41] LABS: INR 2.18 (0.85-1.17); PROTIME 23.6 SECONDS (11.6-15.0)
== END | disposition home or self-care (01) ==
LOC: D.LABREF 16:43
PROVIDERS: ATTEND Family Medicine
DX: I48.91 Unspecified atrial fibrillation (principal); Z51.81 Encounter for therapeutic drug level monitoring; Z79.01 Long term (current) use of anticoagulants

== ENCOUNTER → 2018-08-18 17:16 | Outpatient (CLI) | payer MEDICARE ==
[2017-09-10 07:09] VITALS: BMI 31.6
[2018-08-18 17:43] LABS: INR 1.17 (0.85-1.17); PROTIME 14.4 SECONDS (11.6-15.0)
== END | disposition home or self-care (01) ==
LOC: D.LABREF 17:16
PROVIDERS: ATTEND Family Medicine
DX: I48.91 Unspecified atrial fibrillation (principal); Z51.81 Encounter for therapeutic drug level monitoring; Z79.01 Long term (current) use of anticoagulants

== ENCOUNTER → 2018-08-25 16:46 | Outpatient (CLI) | payer MEDICARE ==
[2017-09-10 07:09] VITALS: BMI 31.6
[2018-08-25 19:13] LABS: INR 2.9 (0.85-1.17); PROTIME 30.5 SECONDS (11.6-15.0)
== END | disposition home or self-care (01) ==
LOC: D.LABREF 16:46
PROVIDERS: ATTEND Family Medicine
DX: Z51.81 Encounter for therapeutic drug level monitoring (principal); Z79.01 Long term (current) use of anticoagulants

== ENCOUNTER → 2018-09-01 16:39 | Outpatient (CLI) | payer MEDICARE ==
[2017-09-10 07:09] VITALS: BMI 31.6
[2018-09-01 18:39] LABS: ANION GAP 9.1 mmol/L (8-16); CARBON DIOXIDE 31.7 mmol/L (21.0-32.0); CREATININE - SERUM 0.8 mg/dL (0.6-1.3); POTASSIUM - SERUM 3.8 mmol/L (3.5-5.1)
[2018-09-01 19:42] LABS: INR 2.7 (0.85-1.17); PROTIME 27.9 SECONDS (11.6-15.0)
== END | disposition home or self-care (01) ==
LOC: D.LABREF 16:39
PROVIDERS: ATTEND Family Medicine
DX: Z51.81 Encounter for therapeutic drug level monitoring (principal); Z79.01 Long term (current) use of anticoagulants; E87.6 Hypokalemia